=== PATIENT | female | born 1995 | race Caucasian/White ===

== ENCOUNTER 2017-03-05 18:34 | Emergency (ER) | payer OTHER ==
[2017-03-05 19:42] LABS: BILIRUBIN,URINE NEGATIVE (NEGATIVE)
[2017-03-05 19:54] LABS: UA CHARGE (STRIP ONLY) YES; UR CULTURE IF IND NOT INDICATED
[2017-03-05 19:55] LABS: HCG UR QUAL POSITIVE
[2017-03-05] MEDS ORDERED: SUCRALFATE 1 GM/10 ML UDC PO STA (20:34)
[2017-03-05] MEDS ORDERED: FAMOTIDINE 20 MG TABLET PO STA (20:35)
--- NOTE | 2017-03-05 20:37 | ED Physician Documentation ---
PD HPI ABD PAIN - Stated complaint Stated Complaint: ABD PAIN - Chief complaint Chief Complaint: Abd Pain - History obtained from History obtained from: Patient, Family - History of Present Illness Timing - onset: How many years ago (2) Timing - duration: Years (2) Timing - details: Gradual onset, Waxing and waning Pain level max: 7 Pain level now: 5 Quality: Aching, Pain Location: Epigastric Radiation: Other (mid back) Improved by: Other (started on omeprazole 3 days ago, still hurting) Worsened by: Eating, Other (ibuprofen) Associated symptoms: Nausea. No: Fever, Vomiting, Hematemesis, Diarrhea, Constipation, Melena, Hematochezia, Dysuria, Hematuria Similar symptoms before: Diagnosis (GERD vs ulcer) Recently seen: Clinic (2 days ago for same. States has had negative GB workup in the past.) Review of Systems Constitutional: denies: Fever, Chills Throat: denies: Sore throat Cardiac: denies: Chest pain / pressure Respiratory: denies: Cough Skin: denies: Rash Musculoskeletal: denies: Neck pain, Back pain Neurologic: denies: Focal weakness, Numbness, Headache PD PAST MEDICAL HISTORY - Past Medical History Past Medical History: Yes GI: GERD - Past Surgical History Past Surgical History: No - Present Medications Home Medications: Ambulatory Orders Medication Instructions Recorded Confirmed Famotidine [Pepcid] 20 mg PO BID #30 tablet 03/05/17 L. Acidophilus/L. Rhamnosus 1 cap PO DAILY 03/05/17 03/05/17 [Probiotic 15 Billion Cell Cap] Omeprazole 20 mg PO DAILY 03/05/17 03/05/17 Sucralfate [Carafate] 1 gm PO ACHS #60 tablet 03/05/17 Varenicline Tartrate [Chantix] 1 tab PO BID 03/05/17 03/05/17 - Allergies Allergies/Adverse Reactions: Allergies Allergy/AdvReac Type Severity Reaction Status Date / Time No Known Drug Allergies Allergy Verified 03/05/17 18:46 - Social History Does the pt smoke?: No Smoking Status: Former smoker PD ED PE NORMAL - Vitals Vital signs reviewed: Yes - General General: Alert and oriented X 3, No acute distress, Well developed/nourished - HEENT HEENT: Moist mucous membranes - Neck Neck: Supple, no meningeal sign - Cardiac Cardiac: RRR, Strong equal pulses - Respiratory Respiratory: No respiratory distress, Clear bilaterally - Abdomen Abdomen: Soft, Non tender, Non distended, Other (TTP epigastric without peritoneal signs.) - Back Back: No CVA TTP, No spinal TTP - Derm Derm: Warm and dry - Extremities Extremities: No edema - Neuro Neuro: Alert and oriented X 3 - Psych Psych: Normal mood, Normal affect Results - Vitals Vitals: Vital Signs - 24 hr 03/05/17 03/05/17 18:42 21:07 Temperature 36.5 C Heart Rate 107 H 101 H Respiratory 18 16 Rate Blood Pressure 121/81 H 116/87 H O2 Saturation 99 98 Oxygen O2 Source Room air - Labs Labs: Laboratory Tests 03/05/17 03/05/17 03/05/17 19:30 19:30 20:37 WBC 12.6 H RBC 4.53 Hgb 14.2 Hct 40.7 MCV 89.8 MCH 31.3 H MCHC 34.9 RDW 12.1 Plt Count 199 MPV 9.1 Neut # 8.5 H Lymph # 2.8 [place] # 1.1 H Eos # 0.2 Baso # 0.0 Absolute Nucleated RBC 0.00 Nucleated RBCs 0.0 Sodium Potassium Chloride Carbon Dioxide Anion Gap BUN Creatinine Estimated GFR (MDRD) Glucose Calcium Total Bilirubin AST ALT Alkaline Phosphatase Total Protein Albumin Globulin Albumin/Globulin Ratio Lipase HCG, Quant Urine Color YELLOW Urine Clarity CLEAR Urine pH 6.0 Ur Specific [place] 1.025 1.025 Urine Protein NEGATIVE Urine Glucose (UA) NEGATIVE Urine Ketones NEGATIVE Urine Occult Blood TRACE-INTA Urine Nitrite NEGATIVE Urine Bilirubin NEGATIVE Urine Urobilinogen 0.2 (NORMAL) Ur Leukocyte Esterase NEGATIVE Ur Microscopic Review NOT INDICATED Urine Culture Comments NOT INDICATED Urine HCG, Qual POSITIVE 03/05/17 03/05/17 20:37 20:37 WBC RBC Hgb Hct MCV MCH MCHC RDW Plt Count MPV Neut # Lymph # [place] # Eos # Baso # Absolute Nucleated RBC Nucleated RBCs Sodium 137 Potassium 3.9 Chloride 105 Carbon Dioxide 25 Anion Gap 7.0 BUN 12 Creatinine 0.7 Estimated GFR (MDRD) 103 Glucose 79 Calcium 9.4 Total Bilirubin 0.6 AST 20 ALT 31 Alkaline Phosphatase 75 Total Protein 7.4 Albumin 3.9 Globulin 3.5 Albumin/Globulin Ratio 1.1 Lipase 28 HCG, Quant 94.07 Urine Color Urine Clarity Urine pH Ur Specific [place] Urine Protein Urine Glucose (UA) Urine Ketones Urine Occult Blood Urine Nitrite Urine Bilirubin Urine Urobilinogen Ur Leukocyte Esterase Ur Microscopic Review Urine Culture Comments Urine HCG, Qual PD MEDICAL DECISION MAKING - ED course Complexity details: reviewed results, re-evaluated patient, considered differential, d/w patient, d/w family ED course: Patient is a 22-year-old female who presents to the emergency department with Epigastric abdominal pain. This resolved with GI cocktail consisting of Carafate, Pepcid. She feels much improved. Likely represents gastritis versus early ulcer. She is also found to be . No evidence of ectopic. No vaginal bleeding. She recently started Chantix and will have her discuss with her doctor tomorrow if she should continue this. No evidence of pancreatitis. No evidence of cholecystitis. Patient counseled regarding signs and symptoms for which I believe and urgent re-evaluation would be necessary. Patient with good understanding of and agreement to plan and is comfortable going home at this time This document was made in part using voice recognition software. While efforts are made to proofread this document, sound alike and grammatical errors may occur. Departure - Departure Disposition: 01 Home, Self Care Clinical Impression: Gastritis Qualifiers: Gastritis type: unspecified gastritis Chronicity: acute Gastritis bleeding: without bleeding Qualified Code(s): K29.00 - Acute gastritis without bleeding Qualifiers: Weeks of gestation: less than 8 weeks Qualified Code(s): Z3A.01 - Less than 8 weeks gestation of Condition: Good Instructions: ED PUD Vs Gastritis, ED Preg Established Normal Sxs Follow-Up: Javon Snyder ARNP [Primary Care Provider] - Within 1 week Prescriptions: Sucralfate [Carafate] 1 gm PO ACHS #60 tablet Famotidine [Pepcid] 20 mg PO BID #30 tablet Comments: Return if you worsen. Ask your doctor about the chantix while . Discharge Date/Time: 03/05/17 21:48
[2017-03-05] MEDS ORDERED: SUCRALFATE 1 GM/10 ML UDC ONE (20:38)
[2017-03-05] MEDS ORDERED: FAMOTIDINE 20 MG TABLET ONE (20:38)
[2017-03-05 20:47] LABS: BASOPHILS % (AUTO) 0.4 %; EOSINOPHILS # (AUTO) 0.2 10^3/uL (0.0-0.7); EOSINOPHILS % (AUTO) 1.5 %; HCT - HEMATOCRIT 40.7 % (37.0-47.0); HGB - HEMOGLOBIN 14.2 g/dL (12.0-16.0); LYMPHOCYTES # (AUTO) 2.8 10^3/uL (1.5-3.5); LYMPHOCYTES % (AUTO) 22.5 %; MEAN CORPUSCULAR HEMOGLOBIN 31.3 pg (27.0-31.0); MEAN CORPUSCULAR HGB CONC 34.9 g/dL (32.0-36.0); MEAN CORPUSCULAR VOLUME 89.8 fL (81.0-99.0); MEAN PLATELET VOLUME 9.1 fL (7.9-10.8); MONOCYTES # (AUTO) 1.1 10^3/uL (0.0-1.0); MONOCYTES % (AUTO) 8.4 %; NEUTROPHILS # (AUTO) 8.5 10^3/uL (1.5-6.6); NEUTROPHILS % (AUTO) 67.2 %; RED BLOOD COUNT 4.53 10^6/uL (4.20-5.40); RED CELL DISTRIBUTION WIDTH 12.1 % (12.0-15.0); UNCORRECTED WHITE BLOOD COUNT 12.6 x10^3/uL; WHITE BLOOD COUNT 12.6 x10^3/uL (4.8-10.8)
[2017-03-05 21:00] LABS: ALBUMIN/GLOBULIN RATIO 1.1 (1.0-2.2); BILIRUBIN,TOTAL 0.6 mg/dL (0.2-1.0); CALCIUM 9.4 mg/dL (8.5-10.3); CREATININE 0.7 mg/dL (0.4-1.0); POTASSIUM 3.9 mmol/L (3.5-5.0); TOTAL PROTEIN 7.4 g/dL (6.7-8.2)
[2017-03-05 21:08] VITALS: BP 116/87
== END 2017-03-05 21:48 | disposition home or self-care (01) ==
LOC: ED 18:34
DX: O99.611 Diseases of the digestive system complicating pregnancy, first trimester (principal); K29.00 Acute gastritis without bleeding; Z3A.01 Less than 8 weeks gestation of pregnancy
CPT/HCPCS: 36415; 80053; 81003; 81025; 83690; 84702; 85025; 99283; A9270; 81001; 87086

== ENCOUNTER 2017-03-14 03:54 | Emergency (ER) | payer OTHER ==
[2017-03-14 04:24] LABS: BASOPHILS # (AUTO) 0.1 10^3/uL (0.0-0.1); BASOPHILS % (AUTO) 0.7 %; EOSINOPHILS # (AUTO) 0.2 10^3/uL (0.0-0.7); EOSINOPHILS % (AUTO) 2.3 %; HCT - HEMATOCRIT 41.9 % (37.0-47.0); HGB - HEMOGLOBIN 14.5 g/dL (12.0-16.0); LYMPHOCYTES # (AUTO) 2.7 10^3/uL (1.5-3.5); MEAN CORPUSCULAR HEMOGLOBIN 31.3 pg (27.0-31.0); MEAN CORPUSCULAR HGB CONC 34.7 g/dL (32.0-36.0); MEAN CORPUSCULAR VOLUME 90.2 fL (81.0-99.0); MEAN PLATELET VOLUME 8.1 fL (7.9-10.8); MONOCYTES # (AUTO) 0.9 10^3/uL (0.0-1.0); MONOCYTES % (AUTO) 8.6 %; NEUTROPHILS # (AUTO) 6.5 10^3/uL (1.5-6.6); NEUTROPHILS % (AUTO) 62.4 %; NUCLEATED RED BLOOD CELLS AUTO 0.1 /100WBC; RED BLOOD COUNT 4.65 10^6/uL (4.20-5.40); RED CELL DISTRIBUTION WIDTH 11.9 % (12.0-15.0); UNCORRECTED WHITE BLOOD COUNT 10.4 x10^3/uL; WHITE BLOOD COUNT 10.4 x10^3/uL (4.8-10.8)
[2017-03-14 04:34] LABS: ALBUMIN/GLOBULIN RATIO 1.1 (1.0-2.2); BILIRUBIN,TOTAL 0.2 mg/dL (0.2-1.0); CREATININE 0.7 mg/dL (0.4-1.0); POTASSIUM 3.9 mmol/L (3.5-5.0); TOTAL PROTEIN 7.5 g/dL (6.7-8.2)
[2017-03-14 04:35] LABS: BILIRUBIN,URINE NEGATIVE (NEGATIVE); PH,URINE 6.5 PH (5.0-7.5); UA CHARGE (STRIP ONLY) YES; UR CULTURE IF IND NOT INDICATED
[2017-03-14] MEDS ORDERED: ACETAMINOPHEN 500 MG TABLET PO STA (05:10)
[2017-03-14] MEDS ORDERED: ACETAMINOPHEN 500 MG TABLET PO ONE (05:50)
[2017-03-14 05:55] VITALS: BP 123/79
--- NOTE | 2017-03-14 05:59 | ED Physician Documentation ---
PD HPI ABD PAIN - Stated complaint Stated Complaint: ABD,BACK, CHEST PAIN - Chief complaint Chief Complaint: Abd Pain - History obtained from History obtained from: Patient - History of Present Illness Timing - onset: Chronic Timing - details: Gradual onset, Still present Quality: Cramping, Aching Location: RUQ Radiation: Chest Worsened by: Eating, Moving, Position Associated symptoms: No: Fever, Nausea, Vomiting, Diarrhea, Constipation Similar symptoms before: Work up / diagnostics, Treatment, Follow up Recently seen: Emergency Dept - Additional information Additional information: Patient is a 22 year old female with a history of gallbladder disease who is presenting to the emergency department for right upper quadrant pain with radiation to the right chest. patient states that she has been working on trying to get her gallbladder taken out but she has not been able to find anyone willing to do it. patient states that she was worried today because the pain was in her chest. patient denied any vaginal bleeding or vaginal discharge. Review of Systems Constitutional: denies: Fever, Chills Eyes: denies: Loss of vision, Decreased vision Ears: denies: Ear pain, Drainage/discharge Nose: denies: Rhinorrhea / runny nose, Congestion Cardiac: reports: Chest pain / pressure. denies: Palpitations Respiratory: denies: Dyspnea, Cough, Wheezing GI: reports: Abdominal Pain. denies: Nausea, Vomiting : denies: Dysuria, Frequency, Hesitancy Musculoskeletal: reports: Back pain. denies: Neck pain, Extremity pain, Joint pain, Extremity swelling Neurologic: denies: Generalized weakness, Focal weakness, Numbness Immunocompromised: denies: Immunocompromised PD PAST MEDICAL HISTORY - Past Medical History GI: GERD - Past Surgical History Past Surgical History: No - Present Medications Home Medications: Ambulatory Orders Medication Instructions Recorded Confirmed Famotidine [Pepcid] 20 mg PO BID #30 tablet 03/05/17 03/14/17 L. Acidophilus/L. Rhamnosus 1 cap PO DAILY 03/05/17 03/14/17 [Probiotic 15 Billion Cell Cap] Omeprazole 20 mg PO DAILY 03/05/17 03/14/17 Sucralfate [Carafate] 1 gm PO ACHS #60 tablet 03/05/17 03/14/17 - Allergies Allergies/Adverse Reactions: Allergies Allergy/AdvReac Type Severity Reaction Status Date / Time No Known Drug Allergies Allergy Verified 03/14/17 04:01 - Social History Does the pt smoke?: No Smoking Status: Former smoker Does the pt drink ETOH?: No Does the pt have substance abuse?: No - Immunizations Immunizations are current?: Yes PD ED PE NORMAL - Vitals Vital signs reviewed: Yes - General General: Alert and oriented X 3, Well developed/nourished - HEENT HEENT: Atraumatic, PERRL - Neck Neck: Supple, no meningeal sign, No JVD - Cardiac Cardiac: RRR, No murmur - Respiratory Respiratory: No respiratory distress, Clear bilaterally - Abdomen Abdomen: Soft - Derm Derm: Normal color, Warm and dry, No rash - Extremities Extremities: No deformity, No tenderness to palpate, Normal ROM s pain, No edema - Neuro Neuro: Alert and oriented X 3, No motor deficit, No sensory deficit, Normal speech PD ED PE EXPANDED - General General: Alert, In Pain - Abdomen Abdomen: Tender to palpation, RUQ. No: Rebound, Guarding Results - Vitals Vitals: Vital Signs - 24 hr 03/14/17 03/14/17 03:59 05:54 Temperature 36.0 C L Heart Rate 106 H 82 Respiratory 18 17 Rate Blood Pressure 134/85 H 123/79 O2 Saturation 98 99 Oxygen O2 Source Room air - EKG (time done) 0424 Rate: Rate (enter#) (78) Rhythm: NSR Burden: Normal Intervals: Normal DE QRS: Normal Ischemia: Normal ST segments Compare to prior EKG: Old EKG unavailable - Labs Labs: Laboratory Tests 03/14/17 03/14/17 03/14/17 04:15 04:15 04:15 WBC 10.4 RBC 4.65 Hgb 14.5 Hct 41.9 MCV 90.2 MCH 31.3 H MCHC 34.7 RDW 11.9 L Plt Count 318 MPV 8.1 Neut # 6.5 Lymph # 2.7 [place] # 0.9 Eos # 0.2 Baso # 0.1 Absolute Nucleated RBC 0.01 Nucleated RBCs 0.1 Sodium 138 Potassium 3.9 Chloride 102 Carbon Dioxide 26 Anion Gap 10.0 BUN 12 Creatinine 0.7 Estimated GFR (MDRD) 103 Glucose 114 H Calcium 10.0 Total Bilirubin 0.2 AST 38 ALT 47 Alkaline Phosphatase 85 Troponin I < 0.04 Total Protein 7.5 Albumin 3.9 Globulin 3.6 Albumin/Globulin Ratio 1.1 Lipase 28 HCG, Quant Urine Color Urine Clarity Urine pH Ur Specific [place] Urine Protein Urine Glucose (UA) Urine Ketones Urine Occult Blood Urine Nitrite Urine Bilirubin Urine Urobilinogen Ur Leukocyte Esterase Ur Microscopic Review Urine Culture Comments 03/14/17 03/14/17 04:15 04:20 WBC RBC Hgb Hct MCV MCH MCHC RDW Plt Count MPV Neut # Lymph # [place] # Eos # Baso # Absolute Nucleated RBC Nucleated RBCs Sodium Potassium Chloride Carbon Dioxide Anion Gap BUN Creatinine Estimated GFR (MDRD) Glucose Calcium Total Bilirubin AST ALT Alkaline Phosphatase Troponin I Total Protein Albumin Globulin Albumin/Globulin Ratio Lipase HCG, Quant 3328.00 Urine Color YELLOW Urine Clarity CLEAR Urine pH 6.5 Ur Specific [place] <=1.005 Urine Protein NEGATIVE Urine Glucose (UA) NEGATIVE Urine Ketones NEGATIVE Urine Occult Blood NEGATIVE Urine Nitrite NEGATIVE Urine Bilirubin NEGATIVE Urine Urobilinogen 0.2 (NORMAL) Ur Leukocyte Esterase NEGATIVE Ur Microscopic Review NOT INDICATED Urine Culture Comments NOT INDICATED - Rads (name of study) abdominal ultrasound Radiology: Final report received (multiple stones, anterior wall 3.2mm, no surrounding fluid) PD MEDICAL DECISION MAKING - ED course Complexity details: reviewed old records, reviewed results, re-evaluated patient , considered differential, d/w patient, d/w lending consultant ED course: Patient was seen and examined at bedside. ekg was performed and was within normal limits. labs were drawn and ultrasound was ordered. patient's labs showed no major abnormalities. Patient was sent for imaging. when patient returned from imaging the results were reviewed. there were multiple stones but no signs of acute infection. Case was discussed with brush fabrication supervisor surgeon who stated patient could follow up in clinic. Patient was given a copy of the ultrasound and detailed discharge and return instructions. Patient required no further work up and was stable for discharge with outpatient followup. Departure - Departure Disposition: 01 Home, Self Care Clinical Impression: Cholelithiasis, Biliary colic Condition: Good Instructions: ED Gallstone W Biliary Colic Follow-Up: Cale Lopez DO [Provider Admit Priv/Credential] - Tomorrow (call the office to schedule a follow up appointment) Comments: Your pain you are experiencing is from your gallbladder. It is full of stones but there is no sign of acute infection. All of your heart tests were normal. You will need to have your gallbladder removed at some point. [place] and you can call the surgeon's office listed above. You can take tylenol as needed for pain. You should return to the emergency department for vaginal bleeding, vaginal discharge or new, worsening or uncontrollable symptoms.
--- NOTE | 2017-03-14 06:10 | Ultrasound Preliminary Report ---
Exam: US Abdomen Limited IMPRESSION: 1. Gallbladder is full of stones. There is underlying wall thickening. Absence of mammographic Abel 's sign. 2. No biliary dilation. 3. Moderate hepatic steatosis. [facility] SITE ID: [id number]
--- NOTE | 2017-03-14 06:13 | Ultrasound Report ---
EXAM: ABDOMEN ULTRASOUND LIMITED, RUQ EXAM DATE: 03/14/2017 05:38 AM. CLINICAL HISTORY: Right upper quadrant pain, history of gallstones COMPARISON: None. TECHNIQUE: Real-time scanning was performed with static images obtained. FINDINGS: Liver: Moderate increased echogenicity. No suspicious focal lesion. Liver measures 15.8 cm in length. Portal Vein: Patent with hepatopetal flow. Gallbladder: Multiple gallstones are present. Wall echo sign is present. Borderline wall thickening. Biliary System: CBD measures 3.0 mm. No intrahepatic or extrahepatic ductal dilatation. Pancreas: Normal appearing head and body. Other portions are obscured by overlying structures. Right Kidney: Visualized portions of the right kidney are without significant abnormality. Right kid magen measures 10.9 cm in length. Other: None. IMPRESSION: 1. Gallbladder is full of stones. There is underlying wall thickening. Absence of mammographic Abel 's sign. 2. No biliary dilation. 3. Moderate hepatic steatosis. [facility] Referring Provider Line: [phone] SITE ID: [id number]
== END 2017-03-14 06:55 | disposition home or self-care (01) ==
LOC: ED 03:54
DX: K80.20 Calculus of gallbladder without cholecystitis without obstruction (principal); K21.9 Gastro-esophageal reflux disease without esophagitis; Z87.891 Personal history of nicotine dependence
CPT/HCPCS: 36415; 76705; 80053; 81003; 83690; 84484; 84702; 85025; 93005; 93010; 99283; 99284; A9270; 81001; 87086

== ENCOUNTER 2017-05-14 06:09 | Day surgery (SDC) | payer OTHER ==
[2017-05-14] MEDS ORDERED: ceFAZolin 2 GM/50 ML 50 ML IV ONE (06:27)
[2017-05-14] MEDS ORDERED: LACTATED RINGERS 1,000 ML IV ONE ×2 (06:45→08:37)
--- NOTE | 2017-05-14 07:24 | HISTORY & PHYSICAL EXAMINATION ---
HPI - History of Present Illness HPI Comment/Other: Salud is herefor lap catherine for persistent biliary colic now in her second trimester. Her last Ob visit was last week. She is still experiencing RUQ post prandial pain. Allergies: NKDA Past Surgical History: Reviewed history and no changes required: Tonsilectomy Family History Summary: Reviewed history and no changes required: 04/05/2017 Mother () - Has Family History of Other Medical Problems - Fibromyalgia - Entered On: 04/05/2017 Social History: Reviewed history and no changes required: Risk Factors: Smoked Tobacco Use: Former smoker Cigarettes: Yes -- 1/2 pack(s) per day,Drug use: no Exercise: no Vital Signs: Problems were reviewed with the patient during this visit. Medications were reviewed with the patient during this visit. Allergies were reviewed with the patient during this visit. No known allergies. Physical Exam General: normal appearance and obese. Lungs: clear bilaterally to A & P Heart: regular rate and rhythm, S1, S2 without murmurs, rubs, gallops, or clicks Abdomen: soft, non-distended. uterus is not palpable. Pulses: pulses normal in all 4 extremities Extremities: no clubbing, cyanosis, edema, or deformity noted with normal full range of motion of all joints Axillary Nodes: no significant adenopathy Psych: Tearful during her conversation Problems: Problems Added: 1) Dx of Biliary colic ([id number]-C65.50) (ICD-574.20) Impression & Recommendations: Problem # 1: Biliary colic Will perform doppler preop and post op. Will proceed with lap catherine. PMH/PSH - Past Medical History Cardiovascular: positive: None Respiratory: positive: None Endocrine/Autoimmune: positive: None GI: positive: None : positive: None HEENT: positive: None Psych: positive: None Musculoskeletal: positive: None Derm: positive: None MRSA Hx?: No - Past Surgical History HEENT: positive: Tonsil/Adenoidectomy Social & Family Hx - Social History Does the pt smoke?: No Smoking Status: Former smoker Does the pt drink ETOH?: No Does the pt have substance abuse?: No Meds/Allgy - Home Medications Home Medications: Ambulatory Orders Medication Instructions Recorded Confirmed Pnv95/Ferrous Fumarate/FA 1 each PO DAILY 05/11/17 05/14/17 [ Vitamin Tablet] - Allergies Allergies/Adverse Reactions: Allergies Allergy/AdvReac Type Severity Reaction Status Date / Time No Known Drug Allergies Allergy Verified 03/14/17 04:01 Exam - Vital Signs Vital Signs: Vital Signs x48h Temp Pulse Resp BP Pulse Ox 05/14/17 06:30 36.2 C L 84 20 109/62 100
[2017-05-14] MEDS ORDERED: BUPIVACAINE 0.5%-EPI 1:200000 PF 30 ML VIAL SUBQ ONE ×2 (07:58)
[2017-05-14] MEDS ORDERED: PROPOFOL 200 MG/20 ML VIAL IVP ONE (08:03)
[2017-05-14] MEDS ORDERED: SUCCINYLCHOLINE 200 MG/10 ML VIAL IVP ONE (08:03)
[2017-05-14] MEDS ORDERED: fentaNYL 100 MCG/2 ML VIAL IVP ONE (08:03)
[2017-05-14] MEDS ORDERED: LIDOCAINE-MPF 2% 5 ML VIAL IM ONE (08:03)
[2017-05-14] MEDS ORDERED: ROCURONIUM 50 MG/5 ML VIAL IVP ONE (08:03)
[2017-05-14] MEDS ORDERED: NEOSTIGMINE 1 MG/1 ML 10 ML MDV IVP ONE (08:03)
[2017-05-14] MEDS ORDERED: GLYCOPYRROLATE 1 MG/5 ML VIAL IVP ONE (08:03)
[2017-05-14] MEDS: fentaNYL 100 MCG/2 ML VIAL ONE ×2 (09:13→09:24)
[2017-05-14 10:11] VITALS: BP 124/82
--- NOTE | 2017-05-14 11:43 | OPERATIVE REPORT ---
DATE OF SURGERY: 05/14/2017 00:00:00 PREOPERATIVE DIAGNOSIS: Biliary colic. POSTOPERATIVE DIAGNOSIS: Biliary colic. NAME OF PROCEDURE: Laparoscopic cholecystectomy. SURGEON: Lesley Farooq MD INDICATIONS FOR PROCEDURE: This is a 22-year-old 12-week gestation female who presented to dc electively for recurrent biliary colic and unable to gain weight during her . She initially saw dc in the first trimester and we scheduled surgery for the beginning of her second trimester. FINDINGS: After obtaining informed consent from the patient and performing preoperative heart rate Doppler, she was brought into the operating room and positioned on the operating table in the supine position, taking note of pressure points. SCD boots were applied. She was intubated by anesthesia. She was administered antibiotics. She was prepped and draped in the usual sterile fashion, and a timeout was taken according to protocol. A supraumbilical 1 cm incision was created and deepened down to the fascia. This was grasped with a Dom and the Veress needle was inserted and the abdominal cavity insufflated. A 5 mm incision was created to the right of the epigastric region, and the Optiview trocar was used to enter the abdominal cavity. The Veress needle was removed, and a 12 mm port placed at the umbilicus. Two additional 5 mm ports were then placed at the right costal margin. The gallbladder was grasped and was retracted over the dome of the liver. No adhesions were noted. The base of the gallbladder was grasped and retracted medially. The lateral attachments were then opened using electrocautery, working my way anteriorly and then medially. The cystic duct and artery were then identified. These were circumferentially dissected from the surrounding tissue. The base of the gallbladder was dissected off of the liver bed. The critical view was then obtained. The duct was then clipped with 2 clips placed proximally, one distally and divided. The artery was divided in a similar manner with 2 clips placed proximally, 1 distally and divided. The gallbladder was then removed from the gallbladder fossa with electrocautery. There was no spillage of bile or stones during this process. There was no bleeding from the liver bed during this process. The gallbladder was placed in the specimen bag and removed through the umbilical port after having to extend it slightly. The umbilical port site was then closed with the Lloyd Sheffield device, with a figure of eight 0 Vicryl suture. The abdominal cavity was then allowed to desufflate. The skin incisions were closed with 4-0 Monocryl and Dermabond was applied. The patient was extubated and taken to recovery in stable condition. ESTIMATED BLOOD LOSS: 5 mL. COMPLICATIONS: None. SPECIMEN: Gallbladder. JOB #: [id number] EXT JOB #:[id number]
== END 2017-05-14 06:10 | disposition home or self-care (01) ==
LOC: SDS 06:09
PROVIDERS: ATTEND Surgery
PROC: 0FT44ZZ Resection of Gallbladder, Percutaneous Endoscopic Approach (ICD-10-PCS; principal; 2017-05-14 07:30)
DX: K80.10 Calculus of gallbladder with chronic cholecystitis without obstruction (principal); Z87.891 Personal history of nicotine dependence; E66.9 Obesity, unspecified; Z68.30 Body mass index [BMI] 30.0-30.9, adult
CPT/HCPCS: 47562; J0690; J7120

== ENCOUNTER 2017-10-10 08:00 | Outpatient (CLI) | payer OTHER | END 2017-10-10 23:59 | disposition home or self-care (01) | LOC: LAB.R 08:00 | PROVIDERS: ATTEND Nurse Practitioner Obstetrics & Gynecology | DX: Z36.85 Encounter for antenatal screening for Streptococcus B (principal) | CPT/HCPCS: 87081 ==

== ENCOUNTER 2017-10-19 14:09 | Outpatient (CLI) | payer OTHER ==
[2017-10-19 14:18] VITALS: BP 120/88
[2017-10-19] MEDS ORDERED: LACTATED RINGERS 1,000 ML IV ONE ×2 (15:20→15:34)
[2017-10-19 15:47] LABS: BILIRUBIN,URINE NEGATIVE (NEGATIVE); GLUCOSE, URINE (UA) NEGATIVE (NEGATIVE); KETONES,URINE (UA) NEGATIVE (NEGATIVE); LEUKOCYTE ESTERASE, URINE NEGATIVE (NEGATIVE); NITRITE,URINE NEGATIVE (NEGATIVE); OCCULT BLOOD,URINE LARGE (NEGATIVE); PH,URINE 6.5 PH (5.0-7.5); PROTEIN,URINE NEGATIVE (NEGATIVE); UROBILINOGEN,URINE 0.2 (NORMAL) E.U./dL (NORMAL)
[2017-10-19 15:57] LABS: CLARITY,URINE HAZY (CLEAR)
[2017-10-19 16:29] LABS: AMORPHOUS SEDIMENT,UR Few /LPF; BACTERIA,URINE Rare /HPF (None Seen); SQUAMOUS EPITHELIAL CELL,UR NONE SEEN (<= Few)
[2017-10-19] MEDS ORDERED: SODIUM CHLORIDE FLUSH 0.9% 10 ML SYRINGE IVP ONE (16:50)
== END 2017-10-19 17:15 | disposition home or self-care (01) ==
LOC: WFO 14:09 → FBP 14:09 → WFO 17:15
PROVIDERS: ATTEND Obstetrics & Gynecology
DX: O47.03 False labor before 37 completed weeks of gestation, third trimester (principal)
CPT/HCPCS: 81001; 96360; 99214; J7120; 81003; 87086

== ENCOUNTER 2017-11-08 20:10 | Inpatient (IN) | payer OTHER ==
[2017-11-08] MEDS ORDERED: OXYTOCIN/SODIUM CHLORIDE 250 ML IV ONE (22:57)
[2017-11-08] MEDS ORDERED: SODIUM CHLORIDE FLUSH 0.9% 10 ML SYRINGE IVP PRN (22:57)
[2017-11-08] MEDS ORDERED: ONDANSETRON 4 MG/2 ML VIAL IVP PRN (22:57)
[2017-11-08] MEDS ORDERED: fentaNYL 100 MCG/2 ML VIAL IVP PRN (22:57)
--- NOTE | 2017-11-08 23:30 | HISTORY & PHYSICAL EXAMINATION ---
Admit History - Instructions [place]/Slash: -Left hand click circles element as positive or present. -Right hand click slashes element as negative or not present. - Visit Reason Visit Reason: Contractions (beginning @ 2029, accompanied by some bright red bleeding, small amount, not ongoing, no LOF) - : 3 Parity: 1 Premature: 0 Ectopic: 0 : 1 Care: positive: [facility] Risk/History: positive: None Complications This : positive: None Smoking Status: Former smoker - Mother's Labs Mother's RH: positive: Positive GBS: positive: Group B Step Negative Rubella Status: positive: Immune Meds/Allgy - Home Medications Home Medications: Ambulatory Orders Medication Instructions Recorded Confirmed Pnv95/Ferrous Fumarate/FA 1 each PO DAILY 05/11/17 05/14/17 [ Vitamin Tablet] - Allergies Allergies/Adverse Reactions: Allergies Allergy/AdvReac Type Severity Reaction Status Date / Time No Known Drug Allergies Allergy Verified 03/14/17 04:01 Physical - Abdominal Exam Vital Signs: Temp Pulse Resp BP Pulse Ox 36.7 C 89 18 118/75 99 11/08/17 20:20 11/08/17 20:20 11/08/17 20:20 11/08/17 20:20 11/08/17 20:20 Contraction Frequency (min/apart): 4-5 Contraction Intensity: positive: Moderate Uterine Resting Tone: positive: Soft - Monitoring Heart Rate Baseline: 140 Strip Review: positive: Category I - Presentation Presentation: positive: Vertex - Vaginal Exam Membranes: positive: Membranes intact Dilation (in cm): 6 Effacement (%): 70 Station: positive: -3 (per RN) Cervical Position: positive: Anterior - Speculum Exam Speculum Exam Performed: positive: No - Other Notes Labor Progress Note/Additional Text: Salud presents in spontaneous, active labor @ term. She was assessed initially on arrival & was 4cm dilated. She walked for 2 hours & was shortly thereafter 6cm & teri more regularly. She had a small amount of bright, red bleeding on arrival, none since. No LOF. She has had an uncomplicated . She is hoping for an unmedicated delivery. PMH: cholecystectomy 2016, tonsillectomy 2005 both uncomplicated PObHx: TAB x1 w/o complication; x1, uncomplicated 2013 ROS: GEN: No fever, no chills HEENT: No TOM, no vision changes CARDIAC: No CP, no palpitations RESP: No SOB, no dyspnea GI: No n/v/d/ : +bright red vaginal bleeding, small amt x1 earlier, no LOF, no lesions, no other d/c OB: +FM, +uterine contractions--rates pain at 5/10, no LOF, +small amt bright red vaginal bleeding SKIN: No pruritus, no lesion NEURO: No numbness/tingling/weakness MS: No pain/swelling PSYCH: No anxiety/depression PE: GEN: AAOx3, NAD WA gravid female HEENT: Grossly normocephalic, atraumatic; corrective lenses CARDIAC: RRR Nl s1s2, no murmur RESP: cta b/l t/o GI: gravid, nt, movement palpable, lie longitudinal, EFW 7.5-8#, presentation cephalic : No lesion, no LOF OB: EFM: bl 140bpm, + accels, no decels, mod mata; toco: UCs q 4-5min x60-90 seconds, SVE per RN: 6/70/-3, posterior, IBOW SKIN: CDI, no lesion NEURO: No focal deficit MS: FROM t/o PSYCH: Normal mood & affect Assesssment: 22 y/o @ 39w2d in spontaneous, active labor @ term; GBS negative, desires limited intervention Plan for Labor - Plan For Labor Plan for Labor: 1. Admit 2. Reassess cervical status x4 hours, earlier PRN 3. Anticipate
[2017-11-08] MEDS: LACTATED RINGERS 1,000 ML IV SCH (23:55)
[2017-11-09 00:09] LABS: BASOPHILS # (AUTO) 0.1 10^3/uL (0.0-0.1); BASOPHILS % (AUTO) 0.5 %; EOSINOPHILS # (AUTO) 0.1 10^3/uL (0.0-0.7); EOSINOPHILS % (AUTO) 0.9 %; HGB - HEMOGLOBIN 13.7 g/dL (12.0-16.0); LYMPHOCYTES % (AUTO) 18.4 %; MEAN CORPUSCULAR HEMOGLOBIN 30.8 pg (27.0-31.0); MEAN CORPUSCULAR HGB CONC 33.2 g/dL (32.0-36.0); MEAN CORPUSCULAR VOLUME 92.7 fL (81.0-99.0); MEAN PLATELET VOLUME 9.8 fL (7.9-10.8); MONOCYTES # (AUTO) 1.2 10^3/uL (0.0-1.0); NEUTROPHILS # (AUTO) 12.1 10^3/uL (1.5-6.6); NEUTROPHILS % (AUTO) 73.2 %; PLT - PLATELET COUNT 241 10^3/uL (130-450); RED BLOOD COUNT 4.43 10^6/uL (4.20-5.40); RED CELL DISTRIBUTION WIDTH 13.3 % (12.0-15.0); WHITE BLOOD COUNT 16.6 x10^3/uL (4.8-10.8)
[2017-11-09] MEDS ORDERED: OXYTOCIN 10 UNIT/ML VIAL ONE (01:35)
[2017-11-09] MEDS ORDERED: OXYTOCIN/SODIUM CHLORIDE 250 ML IV ONE (01:38)
[2017-11-09] MEDS ORDERED: METHYLERGONOVINE 0.2 MG/ML AMP ONE (01:38)
[2017-11-09] MEDS ORDERED: HYDROCORTISONE 1% CREAM 28 GM TUBE PR PRN (01:38)
[2017-11-09] MEDS ORDERED: HYDROCORTISONE/PRAMOXINE 10 GM PR PRN (01:38)
[2017-11-09] MEDS ORDERED: METHYLERGONOVINE 0.2 MG/ML AMP IM PRN (01:38)
[2017-11-09] MEDS ORDERED: WITCH HAZEL/GLYCERIN 1 EACH MED..PAD TOP PRN (01:38)
[2017-11-09] MEDS ORDERED: miSOPROStol 200 MCG TABLET SL SCH (01:39)
[2017-11-09] MEDS ORDERED: miSOPROStol 200 MCG TABLET ONE (01:40)
--- NOTE | 2017-11-09 01:47 | DELIVERY NOTE ---
Delivery Note - Labor Labor: positive: Spontaneous - Delivery Method Delivery Method: positive: Spontaneous vaginal delivery - Presentation Presentation: positive: Vertex, Compound (L hand), JUAN LUIS - left occiput anterior - Nuchal Cord Nuchal Cord: positive: None - Anesthetic Anesthetic Type: - Amniotic Fluid Description Amniotic Fluid Description: positive: Clear (SROM w/ pushing 0124) - Episiotomy Type Episiotomy Type: positive: None - Laceration Laceration: positive: None - Dalton Dalton: positive: Placed in direct skin contact with mother, Suctioned, Bulb syringe, Stimulated, [place] used Dalton sex: positive: Female - Cord Cord: positive: 3 vessels - Placenta Placenta: positive: Intact, Spontaneous - Estimated Blood Loss Estimated Blood Loss (in cc): 500 - Post Delivery Events Post Delivery Events: positive: No post delivery events - Delivery Comments (Free Text/Narrative) Delivery Comments (Free Text/Narrative): Salud Hernandes is a 22 y/o [id number] who received care beginning in the 1st trimester & had an uncomplicated course. She presented in spontaneous, active labor @ 39 weeks 1d gestation by 1st trimester US & progressed spontaneously w/o augmentation or analgesia/anesthesia. FHTs were monitored electronically t/o & were consistently category I. She was found to complete w/ spontaneous urge to push @ 0120, for a total 1st stage duration of 4 hours, 20 minutes. She pushed w/ spontaneous urge to viable female in JUAN LUIS position w/ L compound hand over intact perineum @ 0125, for a total second stage duration of 5 minutes. SROM for clear amniotic fluid w/ pushing @ 0124. Infant vigorous w/ spontaneous, lusty cry. Placed to maternal abdomen for drying/stim. Pitocin not available in room for AMTSL; placenta del spontaneously & intact, Steph, @ 0127, for a total second stage duration of 2 minutes. Fundus boggy, brisk vaginal bleeding immediately s/p delivery of placenta. 10U IM Pitocin administered & bimanual compression performed w/ ongoing brisk bleeding. 0.2mg IM methergine administered & 800mcg SL misoprostol administered w/ ongoing bimanua compression. Fundus firmed & bleeding slowed. EBL 500mL. Vagina & perineum inspected & found to be intact. Mother & stable. Apgars 8/9, weight pending. Previously successful experience, plans to breastfeed exclusively. FOB & pt's mother @ bedside, supportive.
[2017-11-09] MEDS ORDERED: ONDANSETRON 4 MG/2 ML VIAL IVP PRN (02:43)
[2017-11-09] MEDS: ACETAMINOPHEN 500 MG TABLET PO SCH ×3 (05:36→19:01)
[2017-11-09] MEDS ORDERED: SODIUM CHLORIDE FLUSH 0.9% 10 ML SYRINGE IVP SCH (06:00)
[2017-11-09] MEDS: DOCUSATE SODIUM 100 MG CAPSULE PO SCH ×2 (11:13→22:14)
[2017-11-09] MEDS: CELECOXIB 100 MG CAPSULE PO SCH ×2 (11:14→22:21)
[2017-11-09] MEDS: LACTATED RINGERS 1,000 ML IV SCH ×3 (11:16→22:22)
--- NOTE | 2017-11-09 17:59 | PROVIDER PROGRESS NOTE ---
Subjective - Prog Note Date Prog Note Date: 11/09/17 Prog Note Time: 18:00 - Subjective Pt reports feeling: Improved Subjective: Salud is doing well. She states her pain is well-controlled w/o analgesia. She is ambulating & voiding w/o difficulty. She is well. She does have one inverted nipple & has some challenges w/ that--she has had previous experience managing & can readily ajay the nipple. She is making copious quantities of colostrum. She reports minimal lochia rubra, less than her typical menses. She is not planning to return to work. She denies hx of pp depression & states her mood is good. Current Medications - Current Medications Current Medications: vitamin only Objective - Vital Signs/Intake & Output Vital Signs: Vital Signs x48h Temp Pulse Resp BP BP Pulse Ox 11/09/17 16:08 37.0 C 80 16 125/90 H 98 11/09/17 11:46 37.1 C 85 12 121/79 98 Intake & Output: Intake & Output 11/06/17 11/07/17 11/08/17 11/09/17 23:59 23:59 23:59 23:59 Intake Total 1312.5 Output Total 425 Balance 887.5 - Objective General Appearance: positive: No acute distress, Alert Eyes Bilateral: positive: Normal inspection, PERRL, EOMI Respiratory: positive: Chest non-tender, No respiratory distress, Breath sounds nml Cardiovascular: positive: Regular rate & rhythm, No murmur, No gallop Abdomen: positive: Non-tender, No distention, Other (FF U-2) Skin: positive: Color nml, No rash, Warm, Dry Extremities: positive: Non-tender, Full ROM, Nml appearance, No pedal edema. negative: Calf tenderness Neurologic/Psychiatric: positive: Oriented x3, CN's nml (2-12), Motor nml, Sensation nml, Mood/affect nml Comments/Other: breasts b/l s, NT; L nipple inverted, evertable, intact; R nipple everted, intact. Colostrum readily expressible. Pt declines perineal evaluation @ this time - Lab Results Fish Bones: 11/09/17 05:40 Other Labs: Lab Results x24hrs 11/09/17 11/08/17 Range/Units 05:40 23:50 WBC 16.6 H (4.8-10.8) x10^3/uL RBC 4.43 (4.20-5.40) 10^6/uL Hgb 12.9 13.7 (12.0-16.0) g/dL Hct 41.1 (37.0-47.0) % MCV 92.7 (81.0-99.0) fL MCH 30.8 (27.0-31.0) pg MCHC 33.2 (32.0-36.0) g/dL RDW 13.3 (12.0-15.0) % Plt Count 241 (130-450) 10^3/uL MPV 9.8 (7.9-10.8) fL Neut # 12.1 H (1.5-6.6) 10^3/uL Lymph # 3.0 (1.5-3.5) 10^3/uL Dawes # 1.2 H (0.0-1.0) 10^3/uL Eos # 0.1 (0.0-0.7) 10^3/uL Baso # 0.1 (0.0-0.1) 10^3/uL Absolute Nucleated RBC 0.00 x10^3/uL Nucleated RBC % 0.0 /100WBC Assessment/Plan - Problem List (1) (normal spontaneous vaginal delivery) Impression: PPD# 0 s/p w/o laceration 11/09/2017 1. Routine care 2. support provided & to continue in ongoing fashion 3. Reviewed warning s/sx & pp depression s/sx/prevention 4. Pt desires d/c home PPD#1, anticipate d/c if consistently stable
[2017-11-10] MEDS: ACETAMINOPHEN 500 MG TABLET PO SCH (06:52)
[2017-11-10] MEDS: DOCUSATE SODIUM 100 MG CAPSULE PO SCH (08:02)
[2017-11-10 08:34] VITALS: BP 130/95
--- NOTE | 2017-11-10 09:37 | Discharge Plan ---
Discharge Plan Disposition: 01 Home, Self Care Condition: Good Diet: Regular Activity Restrictions: pelvic rest x6 weeks Shower Restrictions: No Driving Restrictions: No Weight Bearing: Full Weight Instruction Topics: Vaginal After, Breastfeed How To, Exercises Kegel Additional Instructions or Follow Up instructions: Follow up for care in 3 weeks; please call for earlier appointment if becomes challenging. No Smoking: If you smoke, Please STOP! Call for help. Follow-up with: Shawnee Burrell CNM, [place] [Provider Admit Priv/Credential] -
--- NOTE | 2017-11-10 09:57 | DISCHARGE SUMMARY ---
"Discharge Summary Admit Date: 11/08/17 Discharge Date: 11/10/17 Discharging Provider: MACIE Code Status: Attempt Resuscitation Condition at Discharge: Good Discharge Disposition: 01 Home, Self Care Discharge Facility Name: [facility] - DIAGNOSES Admission Diagnoses: ACTIVE, SPONTANEOUS LABOR @ TERM Discharge Diagnoses with Status of Each Condition: - HPI History of Present Illness: Salud is a 22 y/o [id number] who presented @ 39 weeks' gestation in active, spontaneous labor. She progressed spontaneously w/o augmentation or any medication & utilized hydrotherapy effectively for pain management. She progressed to complete dilatation & experienced SROM for CAF 1 minute prior to of viable female in JUAN LUIS position w/ compound L hand over intact perineum. She had immediate pp uterine atony that responded well to bimanual compression & uterotonic administration. Overall EBL 500mL, minimal decrease in pp hemoglobin/hematocrit. - CONSULTS | PROCEDURES Procedures: - HOSPITAL COURSE Hospital Course: , Jasmeets pain is well-controlled w/o analgesia. She is ambulating & voiding w/o difficulty. She is passing flatus & tolerating po intake. She is exclusively w/ some nipple tenderness but no discomfort otherwise. She reports minimal lochia rubra & no perineal pain. She is not planning to return to work. Her mother will be present to assist her w/ her & toddler for the next month & her partner will have two weeks off to assist her as well. She denies hx of pp depression, but her states that he believes she did have depression & that it was persistent for >1 year s/p delivery of their 4 y/o. We discussed this at great length & pt states that she thinks it is likely that, in retrospect, she actually did have depression. She would like to attempt to prophylax a recurrence w/ SSRI usage & we reviewed this at length. PARQ sertraline, and she will begin a 50mg oral dosing regimen today. She will plan to see me in a week to determine a need for further titration & to identify any early PP depression requiring additional intervention. She is not planning another @ this time & intends a pp paragard placement. We reviewed pp warning s/sx, including pp depression s/sx, and pp aftercare instructions. She is ready to leave the hospital. - ALLERGIES Allergies/Adverse Reactions: Allergies Allergy/AdvReac Type Severity Reaction Status Date / Time No Known Drug Allergies Allergy Verified 03/14/17 04:01 - MEDICATIONS Home Medications: Ambulatory Orders Medication Instructions Recorded Confirmed Pnv95/Ferrous Fumarate/FA 1 each PO DAILY 05/11/17 05/14/17 [ Vitamin Tablet] Home Medications Other | Comments: sertraline 50mg po daily; begin today; rx sent electronically to [facility] - PHYSICAL EXAM AT DISCHARGE General Appearance: positive: No acute distress, Alert Eyes Bilateral: positive: Normal inspection, PERRL, EOMI Respiratory: positive: Chest non-tender, No respiratory distress, Breath sounds nml Cardiovascular: positive: Regular rate & rhythm, No murmur Abdomen: positive: Non-tender, No distention, Other (FF U-2) Back: positive: Nml inspection Skin: positive: Color nml, No rash, Warm, Dry Extremities: positive: Non-tender, Full ROM, Nml appearance, No pedal edema. negative: Calf tenderness Neurologic/Psychiatric: positive: Oriented x3, CN's nml (2-12), Motor nml, Sensation nml, Mood/affect nml Physical Exam Other/Comments: Nipples b/l cracked, colostrum easily expressible; L nipple slightly inverted, R everted; breasts b/l S, NT; perineum intact w/o erythema/edema/ecchymosis; minimal lochia rubra. - LABS Result Diagrams: 11/09/17 05:40 - FOLLOW UP Follow Up: x1 week w/ Shawnee Burrell CNM, ARNP in outpt clinic for mood evaluation, medication review, earlier PRN problem x3 weeks w/ Shawnee Burrell CNM, ARNP in outpt clinic for pp care x8 weeks w/ Shawnee Burrell CNM, ARNP in outpt clinic for annual exam & paragard IUD insertion - TIME SPENT Time Spent in Discharge (Minutes): 30"
--- NOTE | 2017-11-10 15:43 | Labor Flowsheet ---
Labor Flowsheet Datetime Report Generated by CPN: 11/10/2017 15:42 Datetime: 11/10/2017 07:51 VITAL SIGNS NBP Sys/Henny/Mean (mmHg): 130 : 95 : 102 Pulse: 77 LaborFlag: Labor Datetime: 11/09/2017 15:40 SpO2 (%): 98 Datetime: 11/09/2017 01:24 Membranes Ruptured Date/Time: 11/09/2017 01:24 Membranes Rupture Method: Spontaneous Amniotic Fluid Color: Clear Amniotic Fluid Amount: Moderate Amniotic Fluid Odor: Normal Vaginal Bleeding: Normal Show STAGE 2 Pushing: Coached on Pushing; Urge to Push Pushing Position: Pushing with Contractions; Pushing Lithotomy Pushing Progress: Descent with Pushing Datetime: 11/09/2017 01:22 COMMUNICATION Provider Notified (Name): CNM in room for delivery Notification Reason: Other Nurse Giving Report: Sander Monge RNC Datetime: 11/09/2017 01:20 UTERINE ACTIVITY Monitor Mode: External Frequency (min): 2 Quality: Strong Duration (sec): 60 Pattern: Normal: <= 5 Contractions in 10 Minutes Resting Tone (Palpate): Relaxed ASSESSMENT A Monitor Mode: External US FHR Baseline Rate : 130 FHR Baseline Changes: No Baseline Change Variability: Minimal - Undetectable to <=5 bpm Accelerations: None Decelerations: None Category: Category I Datetime: 11/09/2017 01:03 Comments: Pt. out of tub, feels like she needs to push. SVE done, CNM notified. Datetime: 11/09/2017 00:15 Patient Care Comments: To whirlpool tub. Datetime: 11/09/2017 00:08 Temperature (C): 36.7 Temperature Route: Oral PAIN Pain Scale: 6 Pain Presence: Intermittent Pain Type: Contraction Pain Location: Abdomen Pain Goal: 4 Pain Relief Measures: Comfort Measures Pain Coping: Breathing Through Contractions; Other Pain Assessment Comments: Pt. getting into tub Datetime: 11/09/2017 00:05 Stage of : Labor Respirations: 18 VAGINAL EXAM Dilatation (cm): 7.5 Effacement (%): 80 Station: -2 Exam by: Sander Monge RNC Membrane Status: Intact Datetime: 11/08/2017 23:50 PATIENT CARE IV/Blood Work: IV Started
== END 2017-11-10 15:00 | disposition home or self-care (01) | DRG 775 ==
LOC: WFO 20:10 → FBP 20:12 → WFO 22:56 → FBP 22:57
PROVIDERS: ADMIT Registered Nurse; ATTEND Registered Nurse
PROC: 10E0XZZ Delivery of Products of Conception, External Approach (ICD-10-PCS; principal; 2017-11-08)
DX: O32.6XX0 Maternal care for compound presentation, not applicable or unspecified (principal); O75.89 Other specified complications of labor and delivery; Z87.891 Personal history of nicotine dependence; O92.02 Retracted nipple associated with the puerperium; Z86.59 Personal history of other mental and behavioral disorders; Z3A.39 39 weeks gestation of pregnancy; Z37.0 Single live birth
CPT/HCPCS: 36415; 85018; 85025; 99213

== ENCOUNTER 2018-02-18 15:13 | Outpatient (CLI) | payer OTHER | END 2018-02-18 15:14 | disposition home or self-care (01) | LOC: LAB 15:13 | PROVIDERS: ATTEND Registered Nurse | DX: O90.6 Postpartum mood disturbance (principal) | CPT/HCPCS: 36415; 84443 ==

== ENCOUNTER 2018-12-27 18:06 | Emergency (ER) | payer OTHER ==
--- NOTE | 2018-12-27 20:36 | ED Physician Documentation ---
History of Present Illness - Stated complaint Stated Complaint: SOA/FLU SYMPTS - Chief complaint Chief Complaint: Fever - History obtained from History obtained from: Patient - History of Present Illness Timing: How many days ago (2) - Additonal information Additional information: c/o [employer] cough, body aches, generalized headache, sweats/chills, fever Tmax 101. presents with her daughter who also is registered as ED patient for similar symptoms. Review of Systems Constitutional: reports: Fever, Chills, Myalgias, Fatigue, Sweats Throat: denies: Sore throat Respiratory: reports: Cough. denies: Dyspnea GI: reports: Reviewed and negative Neurologic: reports: Headache PD PAST MEDICAL HISTORY - Past Medical History Past Medical History: No Cardiovascular: None Respiratory: None Neuro: None Endocrine/Autoimmune: None GI: None MAILMASTER: None : None HEENT: None Psych: None Musculoskeletal: None Derm: None - Past Surgical History Past Surgical History: Yes HEENT: Tonsil/Adenoidectomy - Present Medications Home Medications: Ambulatory Orders Medication Instructions Recorded Confirmed Pnv95/Ferrous Fumarate/FA 1 each PO DAILY 05/11/17 05/14/17 [ Vitamin Tablet] Oseltamivir [Tamiflu] 75 mg PO BID #9 capsule 12/27/18 guaiFENesin/CODEINE [Robitussin AC] 5 - 10 ml PO Q6H PRN #100 udc 12/27/18 - Allergies Allergies/Adverse Reactions: Allergies Allergy/AdvReac Type Severity Reaction Status Date / Time No Known Drug Allergies Allergy Verified 12/27/18 19:02 - Social History Does the pt smoke?: No Smoking Status: Never smoker Does the pt drink ETOH?: No Does the pt have substance abuse?: No - Immunizations Immunizations are current?: Yes - POLST Patient has POLST: No PD ED PE NORMAL - Vitals Vital signs reviewed: Yes - General General: Alert and oriented X 3, No acute distress, Well developed/nourished - Neck Neck: Supple, no meningeal sign - Respiratory Respiratory: No respiratory distress, Clear bilaterally Results - Vitals Vitals: Oxygen O2 Source Room air - Labs Labs: Laboratory Tests 12/27/18 19:20 Influenza A (Rapid) POSITIVE H Influenza B (Rapid) Negative PD MEDICAL DECISION MAKING - ED course Complexity details: reviewed results, considered differential, d/w patient ED course: influenza A (+), as is her daughter. Patients symptoms started approximately 48 hours ago and thus Tamiflu offered; we discussed that this could potentially shorten duration of illness as it is within 48 hours of onset, although she does not have any criteria that put her at higher risk if influenza. she opts to take the Tamiflu Departure - Departure Disposition: Home, Self Care Clinical Impression: Influenza Condition: Good Instructions: ED Flu, Medication: Tamiflu (Oseltamivir) Follow-Up: Javon Snyder ARNP [Primary Care Provider] - Prescriptions: guaiFENesin/CODEINE [Robitussin AC] 5 - 10 ml PO Q6H PRN #100 udc PRN Reason: Cough Oseltamivir [Tamiflu] 75 mg PO BID #9 capsule Discharge Date/Time: 12/27/18 21:06
[2018-12-27] MEDS ORDERED: guaiFENesin/CODEINE 5 ML UDC PO STA (20:53)
[2018-12-27] MEDS ORDERED: OSELTAMIVIR 75 MG CAPSULE PO STA (20:54)
[2018-12-27 21:01] VITALS: BP 110/78
== END 2018-12-27 21:06 | disposition home or self-care (01) ==
LOC: ED 18:06
DX: J10.1 Influenza due to other identified influenza virus with other respiratory manifestations (principal)
CPT/HCPCS: 87275; 87276; 99283; A9270

== ENCOUNTER 2019-01-08 10:52 | Emergency (ER) | payer OTHER ==
[2019-01-08 11:16] LABS: BILIRUBIN,URINE NEGATIVE (NEGATIVE); GLUCOSE, URINE (UA) NEGATIVE (NEGATIVE); KETONES,URINE (UA) NEGATIVE (NEGATIVE); LEUKOCYTE ESTERASE, URINE NEGATIVE (NEGATIVE); NITRITE,URINE NEGATIVE (NEGATIVE); OCCULT BLOOD,URINE NEGATIVE (NEGATIVE); PH,URINE 5.5 PH (5.0-7.5); PROTEIN,URINE NEGATIVE (NEGATIVE); UROBILINOGEN,URINE 0.2 (NORMAL) E.U./dL (NORMAL)
[2019-01-08 11:18] LABS: CLARITY,URINE CLEAR (CLEAR); HCG UR QUAL NEGATIVE
--- NOTE | 2019-01-08 11:52 | ED Physician Documentation ---
PD HPI FEMALE - Stated complaint Stated Complaint: FEMALE - Chief complaint Chief Complaint: Abd Pain - History obtained from History obtained from: Patient, Family - History of Present Illness Timing - onset: Enter time (0900), Today Timing - duration: Hours Timing - details: Abrupt onset, Still present Associated symptoms: Pelvic pain. No: Dysuria, Urinary frequency Contributing factors: No: Similar symptoms before: Has not had sx before Recently seen: Not recently seen - Additional information Additional information: 23-year-old female who is midcycle is developed acute left lower pelvic pain and this started about 9:00 this morning she has had an increase in the pain steadily through the day and she is come to the emergency department now for evaluation. Review of Systems Constitutional: denies: Fever Eyes: denies: Decreased vision Ears: denies: Ear pain Nose: denies: Congestion Throat: denies: Sore throat Cardiac: denies: Chest pain / pressure, Palpitations Respiratory: denies: Dyspnea, Cough GI: reports: Abdominal Pain, Nausea. denies: Vomiting, Constipation, Diarrhea : denies: Dysuria, Frequency, Discharge Skin: denies: Rash Musculoskeletal: denies: Neck pain, Back pain, Extremity pain Neurologic: denies: Generalized weakness, Focal weakness, Numbness PD PAST MEDICAL HISTORY - Past Medical History Cardiovascular: None Respiratory: None Neuro: None Endocrine/Autoimmune: None GI: None CABLE PLACER: None : None HEENT: None Psych: None Musculoskeletal: None Derm: None - Past Surgical History Past Surgical History: Yes HEENT: Tonsil/Adenoidectomy - Present Medications Home Medications: Ambulatory Orders Medication Instructions Recorded Confirmed Pnv95/Ferrous Fumarate/FA 1 each PO DAILY 05/11/17 05/14/17 [ Vitamin Tablet] Oseltamivir [Tamiflu] 75 mg PO BID #9 capsule 12/27/18 guaiFENesin/CODEINE [Robitussin AC] 5 - 10 ml PO Q6H PRN #100 udc 12/27/18 Tramadol HCl 50 - 100 mg PO Q6HR PRN #20 tablet 01/08/19 - Allergies Allergies/Adverse Reactions: Allergies Allergy/AdvReac Type Severity Reaction Status Date / Time No Known Drug Allergies Allergy Verified 01/08/19 10:59 - Social History Does the pt smoke?: No Smoking Status: Never smoker Does the pt drink ETOH?: No Does the pt have substance abuse?: No - Immunizations Immunizations are current?: Yes - POLST Patient has POLST: No PD ED PE NORMAL - Vitals Vital signs reviewed: Yes (hyupertensive mild ) - General General: Alert and oriented X 3, Well developed/nourished - HEENT HEENT: Atraumatic, PERRL, EOMI - Neck Neck: Supple, no meningeal sign - Cardiac Cardiac: RRR, No murmur - Respiratory Respiratory: No respiratory distress, Clear bilaterally - Abdomen Abdomen: Soft, Other (LLQ suprapubic tenderness without guarding. ) - Back Back: No CVA TTP, No spinal TTP - Derm Derm: Normal color, Warm and dry, No rash - Extremities Extremities: No deformity, No edema - Neuro Neuro: Alert and oriented X 3, dog breeder 2-12 intact, No motor deficit, No sensory deficit, Normal speech Eye Opening: Spontaneous Motor: Obeys Commands Verbal: Oriented GCS Score: 15 - Psych Psych: Normal mood, Normal affect Results - Vitals Vitals: Vital Signs - 24 hr 01/08/19 01/08/19 10:58 13:52 Temperature 36.2 C L 36.2 C L Heart Rate 84 78 Respiratory 18 14 Rate Blood Pressure 133/79 H 121/80 O2 Saturation 99 98 Oxygen O2 Source Room air - Labs Labs: Laboratory Tests 01/08/19 11:00 Urine Color YELLOW Urine Clarity CLEAR Urine pH 5.5 Ur Specific Carmi 1.025 Urine Protein NEGATIVE Urine Glucose (UA) NEGATIVE Urine Ketones NEGATIVE Urine Occult Blood NEGATIVE Urine Nitrite NEGATIVE Urine Bilirubin NEGATIVE Urine Urobilinogen 0.2 (NORMAL) Ur Leukocyte Esterase NEGATIVE Ur Microscopic Review NOT INDICATED Urine Culture Comments NOT INDICATED Urine HCG, Qual NEGATIVE - Rads (name of study) pelvic ultrasound Radiology: Prelim report reviewed (Impression: Small amount of free fluid within the cul-de-sac within physiologic limits. Otherwise normal pelvic ultrasound.), EMP read indepedently, See rad report Procedures - Bedside sono Bedside sono by EMP: With use of bedside ultrasound the left kidney is imaged it is sonographically nontender and there is no evidence of hydronephrosis. The pelvis is imaged and the bladder is visible other structures are not readily identifiable and there does not appear to be any significant free fluid. PD MEDICAL DECISION MAKING - ED course Complexity details: considered differential, d/w patient, d/w family ED course: 23-year-old female with acute left pelvic pain midcycle likely has ovarian cyst as an etiology and she is administered Toradol 60 mg IM and a pelvic ultrasound is ordered. The patient has no significant relief with the use of the Toradol and she is administered Dilaudid 1 mg IM with Zofran for TL. She is taken over to ultrasound and she has relief of her pain entirely. She no longer has the pain and the ultrasound shows bilateral follicular cysts and a trace amount of free fluid in the pelvis. I suspect that this free fluid in the pelvis likely represents a ruptured cyst and the patient's pain is now resolved. I discussed the findings with the patient and her and I will provide the patient with a prescription for a limited amount of tramadol to use in the future should she have this pain develop midcycle. Departure - Departure Disposition: 01 Home, Self Care Clinical Impression: Cyst of ovary Qualifiers: Laterality: left Qualified Code(s): N83.202 - Unspecified ovarian cyst, left side Condition: Stable Instructions: ED Cyst Ovarian Follow-Up: Javon Snyder ARNP [Primary Care Provider] - Prescriptions: Tramadol HCl 50 - 100 mg PO Q6HR PRN #20 tablet PRN Reason: Pain
[2019-01-08] MEDS ORDERED: KETOROLAC 60 MG/2 ML VIAL IM STA (11:53)
[2019-01-08] MEDS ORDERED: ONDANSETRON ODT 4 MG TABLET TL STA (12:29)
[2019-01-08] MEDS ORDERED: HYDROmorphone 1 MG/ML CARPUJECT IM STA (12:29)
--- NOTE | 2019-01-08 14:27 | Ultrasound Report ---
Reason: L pelvic pain mid cycle Procedure Date: 01/08/2019 Accession Number: [id number] / [id number] Procedure: US - Pelvic w/Transvag+Doppler Ltd CPT Code: FULL RESULT: EXAM: PELVIC ULTRASOUND EXAM DATE: 01/08/2019 01:43 PM. CLINICAL HISTORY: Left pelvic pain mid cycle. COMPARISON: None. TECHNIQUE: Realtime transabdominal pelvic scan performed to identify the uterus and adnexa and as an overview of other pelvic structures, followed by transvaginal scan to provide greater detail of the uterus and adnexa, with static image documentation. FINDINGS: Uterus: 7.9 x 4 x 4.8 cm, volume 79 cc. Retroverted position. Normal overall size and echotexture. Masses: None. Endometrium: 4 mm. Normal. Cervix: Unremarkable. Right Ovary: 3.9 x 2.2 x 2.9 cm, volume 13.2 cc. Normal echotexture and blood flow. Left Ovary: 3 x 2.2 x 2.2 cm, volume 7.5 cc. Normal echotexture and blood flow. Free Fluid: Small amount of free fluid noted within physiologic limits. Other: None. IMPRESSION: Small amount of free fluid within the cul-de-sac within physiologic limits. Otherwise normal pelvic ultrasound. [facility]
[2019-01-08 15:10] VITALS: BP 114/71
== END 2019-01-08 15:10 | disposition home or self-care (01) ==
LOC: ED 10:52
DX: N83.202 Unspecified ovarian cyst, left side (principal)
CPT/HCPCS: 76830; 76856; 81003; 81025; 93976; 96372; 99283; J1170; Q0162; 81001; 87086